=== PATIENT | male | born 1995 | race Hispanic/Latino ===

== ENCOUNTER 2017-03-31 16:20 | Emergency (ER) | payer SELFPAY ==
[2017-03-31] MEDS ORDERED: Dexamethasone 4 mg/ml Vial ONE (16:57)
[2017-03-31] MEDS ORDERED: Ketorolac Tromethamine 60 MG/2 ML VIAL ONE (17:10)
== END 2017-03-31 17:25 | disposition home or self-care (01) ==
LOC: ERS 16:20
DX: J02.9 Acute pharyngitis, unspecified (principal); J45.909 Unspecified asthma, uncomplicated; F17.210 Nicotine dependence, cigarettes, uncomplicated
CPT/HCPCS: 87081; 87430; 96372; J1100; J1885

== ENCOUNTER 2017-06-10 22:59 | Emergency (ER) | payer SELFPAY ==
[2017-06-10] MEDS ORDERED: Ondansetron ODT 4 MG TAB ONE (23:37)
[2017-06-10] MEDS ORDERED: Ibuprofen 800 MG TAB ONE (23:37)
[2017-06-10 23:59] LABS: #Basophils 0.1 thou/uL (0.0-0.2); #Eosinphils 0.2 thou/uL (0.0-0.7); #Lymphocytes 3.2 thou/uL (1.20-3.40); #Monocytes 0.7 thou/uL (0.11-0.59); #Neutrophils 5.7 thou/uL (1.40-6.50); %Basophils 0.5 % (0.0-1.0); %Eosinophils 1.8 % (0.0-10.0); %Lymphocytes 32.5 % (28.0-48.0); %Monocytes 7.1 % (0.0-4.0); Hematocrit 41.1 % (42.0-52.0); Mean Platelet Volume 9.2 fL (7.4-10.4); Red Blood Cell (RBC) Count 4.36 mill/uL (4.00-5.20); White Blood Cell (WBC) Count 9.8 thou/uL (4.8-10.8)
[2017-06-11 00:22] LABS: ALT (SGPT) 20 U/L (8-55); AST (SGOT) 23 U/L (5-34); Alkaline Phosphatase 87 U/L (Less than 750); Anion Gap 11 mmol/L (10-20); BUN (Urea Nitrogen) 10 mg/dL (8.9-20.6); Bilirubin, Total 0.8 mg/dL (0.2-1.2); Calc. Creatinine Clearance 0 mL/min (70-130); Calcium 9.3 mg/dL (7.8-10.44); Carbon Dioxide 26 mmol/L (22-29); Chloride 106 mmol/L (98-107); Estimated GFR-MDRD Greater than 90; Globulin 2.7 g/dL (2.4-3.5); Protein, Total 7.1 g/dL (6.0-8.3)
== END 2017-06-11 00:56 | disposition home or self-care (01) ==
LOC: ERS 22:59
DX: J11.1 Influenza due to unidentified influenza virus with other respiratory manifestations (principal); J45.909 Unspecified asthma, uncomplicated; F17.210 Nicotine dependence, cigarettes, uncomplicated
CPT/HCPCS: 36415; 80053; 85025; 99284; Q0162

== ENCOUNTER 2017-07-07 21:43 | Emergency (ER) | payer SELFPAY ==
[2017-07-07] MEDS ORDERED: Ketorolac Tromethamine 30 MG/ML VIAL ONE (22:29)
[2017-07-07] MEDS ORDERED: Diazepam 5 MG TAB ONE (22:33)
== END 2017-07-07 22:58 | disposition home or self-care (01) ==
LOC: ERS 21:43
DX: M62.830 Muscle spasm of back (principal); J45.909 Unspecified asthma, uncomplicated; F17.210 Nicotine dependence, cigarettes, uncomplicated
CPT/HCPCS: 96372; J1885

== ENCOUNTER 2017-07-16 18:47 | Emergency (ER) | payer SELFPAY ==
[2017-07-16] MEDS ORDERED: Ondansetron ODT 4 MG TAB ONE (20:29)
== END 2017-07-16 20:30 | disposition home or self-care (01) ==
LOC: ERS 18:47
DX: B34.9 Viral infection, unspecified (principal); J45.909 Unspecified asthma, uncomplicated; F17.210 Nicotine dependence, cigarettes, uncomplicated
CPT/HCPCS: 99283; Q0162

== ENCOUNTER 2017-08-08 22:48 | Emergency (ER) | payer SELFPAY ==
[2017-08-09] LABS: #Basophils 0.1 thou/uL (0.0-0.2); #Eosinphils 0.2 thou/uL (0.0-0.7); #Lymphocytes 4.2 thou/uL (1.20-3.40); #Monocytes 0.7 thou/uL (0.11-0.59); #Neutrophils 4.5 thou/uL (1.40-6.50); %Eosinophils 2.1 % (0.0-10.0); %Lymphocytes 43.4 % (21.0-51.0); %Monocytes 7.4 % (0.0-10.0); %Neutrophils 46.2 % (42.0-75.0); Hemoglobin 13.4 g/dL (14.0-18.0); Mean Corpuscular HGB CONC 33.6 g/dL (32.0-36.0); Mean Corpuscular Hemoglobin 31.6 pg (27.0-31.0); Mean Platelet Volume 8.9 fL (7.4-10.4); Platelet Count 196 thou/uL (130-400); RBC Distribution Width 11.8 % (11.5-14.5); Red Blood Cell (RBC) Count 4.24 mill/uL (4.70-6.10); White Blood Cell (WBC) Count 9.8 thou/uL (4.8-10.8)
[2017-08-09] MEDS ORDERED: Ondansetron HCl/PF 4 MG/2 ML Vial ONE (00:07)
[2017-08-09 00:22] LABS: ALT (SGPT) 15 U/L (8-55); AST (SGOT) 19 U/L (5-34); Albumin 4.3 g/dL (3.5-5.0); Alkaline Phosphatase 98 U/L (40-150); Anion Gap 10 mmol/L (10-20); BUN (Urea Nitrogen) 15 mg/dL (8.9-20.6); Bilirubin, Total 0.4 mg/dL (0.2-1.2); Calc. Creatinine Clearance 0 mL/min (70-130); Calcium 9.1 mg/dL (7.8-10.44); Carbon Dioxide 27 mmol/L (22-29); Chloride 105 mmol/L (98-107); Estimated GFR-MDRD Greater than 90; Globulin 2.7 g/dL (2.4-3.5); Glucose 98 mg/dL (70-105); Lipase 8 U/L (8-78); Potassium 3.9 mmol/L (3.5-5.1); Sodium 138 mmol/L (136-145)
[2017-08-09 00:53] LABS: Bilirubin Negative (Negative); Blood, Urine Negative (Negative); Clarity CLEAR (Clear); Glucose, Urine (Dipstick) Negative (Negative); Leukocyte Negative (Negative); Nitrite Negative (Negative); Protein, Urine (Dipstick) Negative (Neg-Trace); Specific Gravity, Urine 1.029 (1.002-1.036)
--- NOTE | 2017-08-09 07:48 | CT ---
PRELIMINARY REPORT/[facility]/EMERGENCY AFTER HOURS PROCEDURE: EXAM: CT Abdomen and Pelvis With Intravenous Contrast CLINICAL HISTORY: 22 years old, male; Pain and signs and symptoms; Nausea and vomiting; Abdominal pain; Generalized; Pa tient HX: M22 presents to ed C/O n/v/d, onset x 3 days. Pt reports multiple episodes of gi symptoms. Associated with abd soreness, especially when pt strains. Denies hematemesis, hematochezia. No known ill contacts. No other complaints. TECHNIQUE: Axial computed tomography images of the abdomen and pelvis with intravenous contrast. Coronal reformatted images were created and reviewed. COMPARISON: No relevant prior studies available. FINDINGS: Lower thorax: No acute findings. ABDOMEN: Liver: Normal. Gallbladder and bile ducts: Normal. Pancreas: Normal. Spleen: Normal. Adrenals: Normal. Kidneys and ureters: Normal. Stomach and bowel: Normal. Appendix: Appendix is normal. PELVIS: Bladder: Normal. Reproductive: Normal as visualized. ABDOMEN and PELVIS: Intraperitoneal space: Normal. No free air. No significant fluid collection. Bones/joints: No acute fracture. No dislocation. Soft tissues: Normal. Vasculature: Normal. No abdominal aortic aneurysm. Lymph nodes: Several small lymph nodes in the right lower quadrant, likely reactive. IMPRESSION: 1. No acute findings. 2. Non-acute findings are described above. Thank you for allowing us to participate in the care of your patient. Dictated and Authenticated by: Jeovany Fields MD 08/09/2017 1:08 AM Central Time ([place] & [place]) FINAL REPORT CT ABDOMEN AND PELVIS WITH IV CONTRAST: I agree with the preliminary report given by Dr. Jeovany Fields of [facility]. POS: [facility]
== END 2017-08-09 01:31 | disposition home or self-care (01) ==
LOC: ERS 22:48
DX: R11.2 Nausea with vomiting, unspecified (principal); R19.7 Diarrhea, unspecified; J45.909 Unspecified asthma, uncomplicated; F17.210 Nicotine dependence, cigarettes, uncomplicated
CPT/HCPCS: 36415; 74177; 80053; 81003; 83690; 85025; 96361; 96372; 96374; J2405

== ENCOUNTER 2017-08-25 22:41 | Emergency (ER) | payer SELFPAY | END 2017-08-26 02:50 | disposition home or self-care (01) | LOC: ERS 22:41 | DX: R51 Headache (principal); J45.909 Unspecified asthma, uncomplicated; F17.210 Nicotine dependence, cigarettes, uncomplicated; Z71.6 Tobacco abuse counseling | CPT/HCPCS: 96361; 96374; 96375; 99406 ==

== ENCOUNTER 2017-10-08 20:47 | Emergency (ER) | payer SELFPAY ==
[2017-10-08] MEDS ORDERED: HYDROcodone/Acetaminophen 10/325 mg Tablet ONE (21:12)
[2017-10-08] MEDS ORDERED: Lidocaine 1% w/Epinephrine 1:100K 20 ML VIAL ONE (21:12)
== END 2017-10-08 21:35 | disposition home or self-care (01) ==
LOC: ERS 20:47
DX: L05.01 Pilonidal cyst with abscess (principal); J45.909 Unspecified asthma, uncomplicated; F17.210 Nicotine dependence, cigarettes, uncomplicated
CPT/HCPCS: 10080; 99406; J2001

== ENCOUNTER 2017-10-10 21:04 | Emergency (ER) | payer SELFPAY | END 2017-10-10 22:03 | disposition home or self-care (01) | LOC: ERS 21:04 | DX: Z48.817 Encounter for surgical aftercare following surgery on the skin and subcutaneous tissue (principal); J45.909 Unspecified asthma, uncomplicated; F17.210 Nicotine dependence, cigarettes, uncomplicated; Z79.899 Other long term (current) drug therapy | CPT/HCPCS: 99282 ==

== ENCOUNTER 2017-10-14 21:47 | Emergency (ER) | payer SELFPAY | END 2017-10-14 22:10 | disposition home or self-care (01) | LOC: ERS 21:47 | DX: Z48.817 Encounter for surgical aftercare following surgery on the skin and subcutaneous tissue; J45.909 Unspecified asthma, uncomplicated; F17.210 Nicotine dependence, cigarettes, uncomplicated | CPT/HCPCS: 99282 ==

== ENCOUNTER 2017-12-12 20:35 | Emergency (ER) | payer SELFPAY ==
[2017-12-12] MEDS ORDERED: diphenhydrAMINE 50 MG/ML VIAL ONE (21:30)
[2017-12-12] MEDS ORDERED: Metoclopramide HCl 10 MG/2 ML VIAL ONE (21:30)
== END 2017-12-12 22:26 | disposition home or self-care (01) ==
LOC: ERS 20:35
DX: R51 Headache (principal); J45.909 Unspecified asthma, uncomplicated; F17.210 Nicotine dependence, cigarettes, uncomplicated
CPT/HCPCS: 96365; 96375; J1200; J2765

== ENCOUNTER 2017-12-13 21:16 | Emergency (ER) | payer SELFPAY ==
[2017-12-13] MEDS ORDERED: Ondansetron ODT 8 MG TAB ONE (21:30)
[2017-12-13 21:54] LABS: Bilirubin Negative (Negative); Blood, Urine Negative (Negative); Clarity CLEAR (Clear); Glucose, Urine (Dipstick) Negative (Negative); Leukocyte Trace (Negative); Nitrite Negative (Negative); Protein, Urine (Dipstick) Negative (Neg-Trace); pH, Urine 6.5 (5.0-9.0)
[2017-12-13 21:55] LABS: Bacteria/HPF Rare-Few HPF (None Seen); Hyaline Casts/LPF 0-3 HYALINE CAST LPF (0-3 Hyaline); RBC/HPF 0-3 HPF (0-3); Squamous Epithelial 0-3 HPF (0-3)
[2017-12-13 22:20] LABS: #Basophils 0.1 thou/uL (0.0-0.2); #Eosinphils 0.2 thou/uL (0.0-0.7); #Lymphocytes 3.6 thou/uL (1.20-3.40); #Monocytes 0.8 thou/uL (0.11-0.59); #Neutrophils 4.1 thou/uL (1.40-6.50); %Eosinophils 2.3 % (0.0-10.0); %Lymphocytes 41.2 % (21.0-51.0); %Monocytes 8.6 % (0.0-10.0); %Neutrophils 46.8 % (42.0-75.0); Hemoglobin 13.5 g/dL (14.0-18.0); Mean Corpuscular HGB CONC 33.6 g/dL (32.0-36.0); Mean Corpuscular Hemoglobin 30.6 pg (27.0-31.0); Mean Corpuscular Volume 91.1 fl (80.0-94.0); Mean Platelet Volume 9.2 fL (7.4-10.4); Platelet Count 167 thou/uL (130-400); RBC Distribution Width 12.1 % (11.5-14.5); Red Blood Cell (RBC) Count 4.41 mill/uL (4.70-6.10); White Blood Cell (WBC) Count 8.7 thou/uL (4.8-10.8)
[2017-12-13] MEDS ORDERED: Lidocaine Viscous Sol 2% 15 ml UD Cup ONE (22:27)
[2017-12-13] MEDS ORDERED: Mag-Al 1200 mg/1200 mg/30 ML UDCUP ONE (22:27)
[2017-12-13 22:42] LABS: ALT (SGPT) 57 U/L (8-55); AST (SGOT) 28 U/L (5-34); Albumin 4.3 g/dL (3.5-5.0); Alkaline Phosphatase 95 U/L (40-150); Anion Gap 10 mmol/L (10-20); BUN (Urea Nitrogen) 17 mg/dL (8.9-20.6); Bilirubin, Total 0.3 mg/dL (0.2-1.2); Calc. Creatinine Clearance 0 mL/min (70-130); Calcium 9.3 mg/dL (7.8-10.44); Carbon Dioxide 26 mmol/L (22-29); Chloride 107 mmol/L (98-107); Estimated GFR-MDRD Greater than 90; Globulin 2.5 g/dL (2.4-3.5); Glucose 109 mg/dL (70-105); Lipase 12 U/L (8-78); Protein, Total 6.8 g/dL (6.0-8.3); Sodium 139 mmol/L (136-145)
== END 2017-12-13 23:30 | disposition home or self-care (01) ==
LOC: ERS 21:16
DX: R11.2 Nausea with vomiting, unspecified (principal); R19.7 Diarrhea, unspecified; J45.909 Unspecified asthma, uncomplicated; F17.210 Nicotine dependence, cigarettes, uncomplicated
CPT/HCPCS: 36415; 80053; 81003; 81015; 83690; 85025; 99284

== ENCOUNTER 2017-12-16 16:30 | Emergency (ER) | payer SELFPAY ==
[2017-12-16] MEDS ORDERED: diphenhydrAMINE 50 MG/ML VIAL ONE (17:20)
[2017-12-16] MEDS ORDERED: Ibuprofen 200 MG TAB ONE (17:20)
[2017-12-16] MEDS ORDERED: Acetaminophen 500 MG TAB ONE (17:20)
[2017-12-16] MEDS ORDERED: Metoclopramide HCl 10 MG/2 ML VIAL ONE (17:20)
[2017-12-16 17:26] LABS: #Eosinphils 0.2 thou/uL (0.0-0.7); #Lymphocytes 3.3 thou/uL (1.20-3.40); #Monocytes 0.9 thou/uL (0.11-0.59); %Basophils 0.4 % (0.0-1.0); %Eosinophils 2.2 % (0.0-10.0); %Lymphocytes 34.8 % (21.0-51.0); %Monocytes 9.9 % (0.0-10.0); %Neutrophils 52.6 % (42.0-75.0); Mean Corpuscular HGB CONC 33.7 g/dL (32.0-36.0); Mean Corpuscular Hemoglobin 30.5 pg (27.0-31.0); Mean Corpuscular Volume 90.3 fl (80.0-94.0); Mean Platelet Volume 8.5 fL (7.4-10.4); Platelet Count 183 thou/uL (130-400); RBC Distribution Width 12.1 % (11.5-14.5); Red Blood Cell (RBC) Count 4.92 mill/uL (4.70-6.10); White Blood Cell (WBC) Count 9.5 thou/uL (4.8-10.8)
--- NOTE | 2017-12-16 17:57 | CT ---
CT BRAIN WITHOUT CONTRAST: 12/16/17 HISTORY: Headache. COMPARISON: None. FINDINGS: No acute territorial infarct or hemorrhage. No midline shift or mass effect. Ventricular size and ext ra-axial CSF spaces are normal. The calvarium is intact. The paranasal sinuses and mastoids are clear. IMPRESSION: No acute intracranial abnormality. POS: [facility]
[2017-12-16 17:59] LABS: ALT (SGPT) 75 U/L (8-55); AST (SGOT) 36 U/L (5-34); Albumin 4.6 g/dL (3.5-5.0); Alkaline Phosphatase 94 U/L (40-150); Anion Gap 10 mmol/L (10-20); BUN (Urea Nitrogen) 16 mg/dL (8.9-20.6); Bilirubin, Total 0.7 mg/dL (0.2-1.2); Calc. Creatinine Clearance 0 mL/min (70-130); Calcium 10.1 mg/dL (7.8-10.44); Carbon Dioxide 27 mmol/L (22-29); Chloride 106 mmol/L (98-107); Estimated GFR-MDRD Greater than 90; Globulin 2.5 g/dL (2.4-3.5); Glucose 111 mg/dL (70-105); Potassium 4.1 mmol/L (3.5-5.1); Protein, Total 7.1 g/dL (6.0-8.3); Sodium 139 mmol/L (136-145)
[2017-12-16 18:46] LABS: Amphetamine Not Detected (NotDetected); Barbiturates Screen Not Detected (NotDetected); Benzodiazepine Screen Not Detected (NotDetected); Cocaine Metabolite Screen Not Detected (NotDetected); Medtox Control Line Valid? VALID (VALID); Medtox Reader # READER 4; Methadone Not Detected (NotDetected); Methamphetamine Not Detected (NotDetected); Opiate Screen Not Detected (NotDetected); Oxycodone Screen Not Detected (NotDetected); Phencyclidine (PCP) Not Detected (NotDetected); THC/Cannabinoid Screen Not Detected (NotDetected); Tricyclic Screen Not Detected (NotDetected)
== END 2017-12-16 18:42 | disposition home or self-care (01) ==
LOC: ERS 16:30
DX: R51 Headache (principal); J45.909 Unspecified asthma, uncomplicated; F17.210 Nicotine dependence, cigarettes, uncomplicated
CPT/HCPCS: 70450; 80053; 80306; 85025; 85652; 86140; 96365; 96375; J1200; J2765

== ENCOUNTER 2017-12-20 | Emergency (ER) | payer SELFPAY ==
[2017-12-20 00:48] LABS: #Basophils 0.1 thou/uL (0.0-0.2); #Eosinphils 0.2 thou/uL (0.0-0.7); #Monocytes 0.9 thou/uL (0.11-0.59); %Eosinophils 1.6 % (0.0-10.0); %Lymphocytes 35.5 % (21.0-51.0); %Monocytes 8.4 % (0.0-10.0); %Neutrophils 53.6 % (42.0-75.0); Hemoglobin 14.2 g/dL (14.0-18.0); Mean Corpuscular Hemoglobin 30.6 pg (27.0-31.0); Mean Corpuscular Volume 90.1 fl (80.0-94.0); Mean Platelet Volume 8.6 fL (7.4-10.4); Platelet Count 187 thou/uL (130-400); RBC Distribution Width 12.3 % (11.5-14.5); Red Blood Cell (RBC) Count 4.64 mill/uL (4.70-6.10); White Blood Cell (WBC) Count 11.2 thou/uL (4.8-10.8)
[2017-12-20 01:19] LABS: ALT (SGPT) 102 U/L (8-55); AST (SGOT) 69 U/L (5-34); Albumin 4.7 g/dL (3.5-5.0); Alkaline Phosphatase 96 U/L (40-150); Anion Gap 12 mmol/L (10-20); BUN (Urea Nitrogen) 14 mg/dL (8.9-20.6); Bilirubin, Total 0.4 mg/dL (0.2-1.2); Calc. Creatinine Clearance 0 mL/min (70-130); Carbon Dioxide 28 mmol/L (22-29); Chloride 104 mmol/L (98-107); Estimated GFR-MDRD Greater than 90; Globulin 2.5 g/dL (2.4-3.5); Glucose 107 mg/dL (70-105); Potassium 3.9 mmol/L (3.5-5.1); Protein, Total 7.2 g/dL (6.0-8.3); Sodium 140 mmol/L (136-145)
[2017-12-20] MEDS ORDERED: diphenhydrAMINE 50 MG/ML VIAL ONE (04:59)
[2017-12-20] MEDS ORDERED: Metoclopramide HCl 10 MG/2 ML VIAL ONE (04:59)
[2017-12-20 06:49] LABS: Color Of CSF Supernatant COLORLESS (Colorless); Tube # 2; Unspun CSF Color COLORLESS (Colorless)
[2017-12-20 06:56] LABS: CSF Source CSF; Clarity Clear (Clear); RBC Count - Manual 1 /cumm (None Seen); Tube # 4; WBC/NonHematics Count - Manual 3 /cumm (0-5)
[2017-12-20 07:03] LABS: CSF, Glucose 58 mg/dl (40-70); CSF, Protein 25 mg/dL (15-40)
[2017-12-20 07:12] LABS: CSF Source CSF; Clarity Clear (Clear); Tube # 1; WBC/NonHematics Count - Manual 21 /cumm (0-5)
[2017-12-20 07:13] LABS: RBC Count - Manual 68 /cumm (None Seen)
--- NOTE | 2017-12-20 08:37 | RAD ---
PA AND LATERAL VIEWS CHEST: HISTORY: Chest pain. FINDINGS: The heart size is normal. The lungs are well expanded and clear. The bony thorax is normal. IMPRESSION: Normal exam. POS: [facility]
--- NOTE | 2017-12-20 09:34 | CT ---
PRELIMINARY REPORT/[facility]/EMERGENTY AFTER-HOURS PROCEDURE CT Head Without Intravenous Contrast CLINICAL HISTORY: 22 years old, male; Pain; Headache; Patient HX: M22 presents to ed with C/O RODRIGUEZ x1 week. Headache grad ually onset throughout the day and worsened at approx. 2100. Pain is localized to the back of the hea d. Denies neck pain, fever, photophobia, cp, weakness, numbness. Was previously in ed with RODRIGUEZ. Stretc hed neck with no relief. No other medical issues. Allergy to amoxicillin. TECHNIQUE: Axial computed tomography images of the head/brain without intravenous contrast. COMPARISON: No relevant prior studies available. FINDINGS: No definite acute skull fracture. Included paranasal sinuses are essentially clear. No acute intracranial hemorrhage or mass effect. Ventricle size is normal for age. No definite acute infarct by CT. IMPRESSION: No acute intracranial bleed or mass effect. Thank you for allowing us to participate in the care of your patient. Dictated and Authenticated by: Chace Baeza MD 12/20/2017 5:43 AM Central Time ([place] & [place]) FINAL REPORT EMERGENT AFTER HOURS CT OF BRAIN PERFORMED WITHOUT CONTRAST ENHANCEMENT: HISTORY: Headache. COMPARISON: 12/16/17 study. FINDINGS: The ventricular and cisternal system is within normal limits. No signs of intracerebral hemorrhage o r extraaxial fluid collections. No mass lesion or mass effect. Mastoid air cells are clear. There is minimal ethmoid air cell mucosal change and a small retention cyst in the left maxillary sinus. IMPRESSION: No acute intracranial abnormalities. This report is in agreement with the temporary report issued by [facility]. POS: [facility]
== END 2017-12-20 07:35 | disposition home or self-care (01) ==
LOC: ERS
DX: R51 Headache (principal); J45.909 Unspecified asthma, uncomplicated; F17.210 Nicotine dependence, cigarettes, uncomplicated
CPT/HCPCS: 36415; 62270; 70450; 71046; 80053; 82945; 84157; 85025; 85060; 87070; 87205; 89051; 96365; 96375; J1200; J2765

== ENCOUNTER 2017-12-26 22:21 | Emergency (ER) | payer SELFPAY ==
[2017-12-26] MEDS ORDERED: Ondansetron ODT 8 MG TAB ONE (22:56)
== END 2017-12-27 00:05 | disposition home or self-care (01) ==
LOC: ERS 22:21
DX: B34.9 Viral infection, unspecified (principal); J45.909 Unspecified asthma, uncomplicated; F17.210 Nicotine dependence, cigarettes, uncomplicated
CPT/HCPCS: 99283

== ENCOUNTER 2018-01-12 17:58 | Emergency (ER) | payer SELFPAY ==
[2018-01-12] MEDS ORDERED: diphenhydrAMINE 50 MG CAP ONE (18:39)
== END 2018-01-12 18:49 | disposition home or self-care (01) ==
LOC: ERS 17:58
DX: L08.1 Erythrasma (principal); K60.2 Anal fissure, unspecified; J45.909 Unspecified asthma, uncomplicated; F17.210 Nicotine dependence, cigarettes, uncomplicated
CPT/HCPCS: 99283

== ENCOUNTER 2018-04-07 01:07 | Emergency (ER) | payer SELFPAY ==
[2018-04-07 01:31] LABS: #Basophils 0.1 thou/uL (0.0-0.2); #Eosinphils 0.2 thou/uL (0.0-0.7); #Neutrophils 7.2 thou/uL (1.40-6.50); %Basophils 1.1 % (0.0-1.0); %Eosinophils 1.7 % (0.0-10.0); %Lymphocytes 31.8 % (21.0-51.0); %Monocytes 8.3 % (0.0-10.0); %Neutrophils 57.2 % (42.0-75.0); Mean Corpuscular HGB CONC 33.4 g/dL (32.0-36.0); Mean Platelet Volume 9.3 fL (7.4-10.4); Platelet Count 221 thou/uL (130-400); Red Blood Cell (RBC) Count 4.51 mill/uL (4.70-6.10); White Blood Cell (WBC) Count 12.5 thou/uL (4.8-10.8)
[2018-04-07 01:33] LABS: Bilirubin Negative (Negative); Blood, Urine Negative (Negative); Clarity CLEAR (Clear); Glucose, Urine (Dipstick) Negative (Negative); Leukocyte Trace (Negative); Nitrite Negative (Negative); Protein, Urine (Dipstick) Negative (Neg-Trace); Specific Gravity, Urine 1.031 (1.002-1.036)
[2018-04-07 01:36] LABS: Bacteria/HPF None Seen HPF (None Seen); Hyaline Casts/LPF 0-3 HYALINE CAST LPF (0-3 Hyaline); Pathc Cast-AUWi Flag 0.14 (0-2.49); RBC/HPF None Seen HPF (0-3); Squamous Epithelial None Seen HPF (0-3)
[2018-04-07 01:49] LABS: ALT (SGPT) 20 U/L (8-55); AST (SGOT) 21 U/L (5-34); Albumin 4.5 g/dL (3.5-5.0); Alkaline Phosphatase 104 U/L (40-150); Anion Gap 11 mmol/L (10-20); BUN (Urea Nitrogen) 13 mg/dL (8.9-20.6); Bilirubin, Total 0.2 mg/dL (0.2-1.2); Calc. Creatinine Clearance 0 mL/min (70-130); Calcium 9.6 mg/dL (7.8-10.44); Carbon Dioxide 24 mmol/L (22-29); Chloride 107 mmol/L (98-107); Estimated GFR-MDRD Greater than 90; Globulin 2.7 g/dL (2.4-3.5); Glucose 146 mg/dL (70-105); Potassium 3.7 mmol/L (3.5-5.1); Protein, Total 7.2 g/dL (6.0-8.3); Sodium 138 mmol/L (136-145)
[2018-04-07] MEDS ORDERED: Ketorolac Tromethamine 30 MG/ML VIAL ONE (02:11)
[2018-04-07] MEDS ORDERED: Ondansetron HCl/PF 4 MG/2 ML Vial ONE (02:11)
--- NOTE | 2018-04-07 09:58 | CT ---
PRELIMINARY REPORT/[facility]/EMERGENTY AFTER-HOURS PROCEDURE CT Abdomen and Pelvis Without Intravenous Contrast CLINICAL HISTORY: 22 years old, male; Pain; Abdominal pain; Flank; Right; Patient HX: R flank pain x several days with Vomiting TECHNIQUE: Axial computed tomography images of the abdomen and pelvis without intravenous contrast. Coronal reformatted images were created and reviewed. COMPARISON: No relevant prior studies available. FINDINGS: Lung bases: Unremarkable. No mass. No consolidation. ABDOMEN: Liver: There is mild hepatomegaly. Gallbladder and bile ducts: Unremarkable. No calcified stones. No ductal dilation. Pancreas: Unremarkable. No ductal dilation. Spleen: Unremarkable. No splenomegaly. Adrenals: Unremarkable. No mass. Kidneys and ureters: Unremarkable. No obstructing stones. No hydronephrosis. Stomach and bowel: Unremarkable. No obstruction. No mucosal thickening. PELVIS: Appendix: The appendix is unremarkable and seen best on axial image 68 of series 2. Bladder: Unremarkable. No stones. Reproductive: Unremarkable as visualized. ABDOMEN and PELVIS: Intraperitoneal space: Unremarkable. No free air. No significant fluid collection. Bones/joints: No acute fracture. No dislocation. Soft tissues: Unremarkable. Vasculature: Unremarkable. No abdominal aortic aneurysm. Lymph nodes: There are prominent right lower quadrant mesenteric lymph nodes consistent with mesenter ic adenitis. IMPRESSION: 1. There are prominent right lower quadrant mesenteric lymph nodes consistent with mesenteric adeniti s. 2. No visible renal, ureteral or bladder calculi. 3. The appendix is unremarkable. Thank you for allowing us to participate in the care of your patient. Dictated and Authenticated by: Misha Damon MD 04/07/2018 2:09 AM Central Time ([place] & [place]) FINAL REPORT CT ABDOMEN AND PELVIS WITHOUT CONTRAST: I agree with the preliminary report given by Dr. Misha Damon of [facility]. POS: [facility]
== END 2018-04-07 03:07 | disposition home or self-care (01) ==
LOC: ERS 01:07
DX: I88.0 Nonspecific mesenteric lymphadenitis (principal); N39.0 Urinary tract infection, site not specified; J45.909 Unspecified asthma, uncomplicated; F17.210 Nicotine dependence, cigarettes, uncomplicated
CPT/HCPCS: 36415; 74176; 80053; 81003; 81015; 85025; 96361; 96374; 96375; J1885; J2405

== ENCOUNTER 2019-04-17 00:59 | Emergency (ER) | payer SELFPAY ==
[2019-04-17] MEDS ORDERED: Ondansetron PF 4 MG/2 ML Vial ONE (01:35)
[2019-04-17] MEDS ORDERED: Ketorolac Tromethamine 30 MG/ML VIAL ONE (01:35)
[2019-04-17 01:58] LABS: Hemoglobin 16.9 g/dL (14.0-18.0); Mean Corpuscular HGB CONC 34.9 g/dL (32.0-36.0); Mean Corpuscular Hemoglobin 32.8 pg (27.0-31.0); Mean Platelet Volume 9.5 fL (7.4-10.4); Platelet Count 194 thou/uL (130-400); RBC Distribution Width 12.6 % (11.5-14.5); Red Blood Cell (RBC) Count 5.17 mill/uL (4.70-6.10); White Blood Cell (WBC) Count 17.6 thou/uL (4.8-10.8)
[2019-04-17 02:01] LABS: ALT (SGPT) 22 U/L (8-55); AST (SGOT) 19 U/L (5-34); Albumin 5.1 g/dL (3.5-5.0); Alkaline Phosphatase 101 U/L (40-110); Anion Gap 15 mmol/L (10-20); BUN (Urea Nitrogen) 8 mg/dL (8.9-20.6); Bilirubin, Total 0.5 mg/dL (0.2-1.2); Calc. Creatinine Clearance 0 mL/min (70-130); Calcium 10.1 mg/dL (7.8-10.44); Carbon Dioxide 24 mmol/L (22-29); Chloride 105 mmol/L (98-107); Estimated GFR-MDRD 86; Globulin 2.7 g/dL (2.4-3.5); Glucose 110 mg/dL (70-105); Potassium 3.8 mmol/L (3.5-5.1); Protein, Total 7.8 g/dL (6.0-8.3); Sodium 140 mmol/L (136-145)
[2019-04-17 02:09] LABS: Amphetamine Not Detected (NotDetected); Barbiturates Screen Not Detected (NotDetected); Benzodiazepine Screen Not Detected (NotDetected); Cocaine Metabolite Screen Not Detected (NotDetected); Medtox Control Line Valid? VALID (VALID); Medtox Reader # READER 1; Methadone Not Detected (NotDetected); Methamphetamine Not Detected (NotDetected); Opiate Screen Not Detected (NotDetected); Oxycodone Screen Not Detected (NotDetected); Phencyclidine (PCP) Not Detected (NotDetected); THC/Cannabinoid Screen Not Detected (NotDetected); Tricyclic Screen Not Detected (NotDetected)
[2019-04-17 02:09] LABS: Eosinophils 2 % (0-10); Lymphocytes 28 % (21-51); MDiff Complete? YES; Monocytes 6 % (0-10); Neutrophil 64 % (42-75); Platelet Morphology Comment Appears Adequate
--- NOTE | 2019-04-17 07:42 | RAD ---
Exam: Chest 2 views HISTORY:Chest pain Comparison: 12/20/2017 FINDINGS: Lungs: No masses or consolidation. Cardiac silhouette: Normal size Pulmonary vessels: Normal Pleural Spaces: Clear Pneumothorax: None Osseous abnormalities: None of acuity. IMPRESSION: No focal consolidation.
--- NOTE | 2019-04-20 23:40 | EKG ---
Test Reason : Blood Pressure : / mmHG Vent. Rate : 066 BPM Atrial Rate : 066 BPM P-R Int : 116 ms QRS Dur : 100 ms QT Int : 378 ms P-R-T Axes : 073 068 042 degrees QTc Int : 396 ms Normal sinus rhythm Normal ECG Confirmed by SEBASTIAN ELLIOTT DO ([id number]), tape editor RUDOLPH GANN ([id number]) on 04/20/2019 11:39:39 PM Referred By: Confirmed By:SEBASTIAN ELLIOTT DO
== END 2019-04-17 02:31 | disposition home or self-care (01) ==
LOC: ERS 00:59
DX: J18.9 Pneumonia, unspecified organism (principal); J45.909 Unspecified asthma, uncomplicated; F17.210 Nicotine dependence, cigarettes, uncomplicated
CPT/HCPCS: 71046; 80053; 80306; 84484; 85025; 93005; 96361; 96374; 96375; 99406; J1885; J2405